=== PATIENT | female | born 1940 | race Caucasian/White ===

== ENCOUNTER 2016-10-22 15:06 | Outpatient (CLI) | payer OTHER ==
[2015-12-12 17:04] VITALS: BP 124/68
== END 2016-10-22 15:07 ==
LOC: POD 15:06
PROVIDERS: ATTEND Podiatrist
DX: M20.12 Hallux valgus (acquired), left foot (principal)
CPT/HCPCS: G0463

== ENCOUNTER 2016-11-28 23:21 | Emergency (ER) | payer OTHER ==
--- NOTE | 2016-11-29 00:31 | Diagnostic Imaging Report ---
ILEANA ZHU [facility] [address] [facility] [address] [place], [place]. [address] Report Submission Date: Nov 29, 2016 12:29:28 AM CDT Patient Study Name: JOSE ROGERS Date: Nov 29, 2016 12:03:34 AM CDT Modality Type: CT\SR Gender: F Description: CT BRAIN W/O CONTRAST : 44 Institution: [facility] Physician: ILEANA ZHU Head CT without contrast Clinical history: The patient tripped and fell with injury to the right side of the head and face. Right periorbital bruising. Technique: CT examination of the brain is performed in contiguous axial slices without the use of contrast. Sagittal and coronal reconstructions are performed by the technologist. Findings: The fourth ventricle lies in a normal midline position. The ventricles and sulci are prominent secondary to atrophy. Chronic ischemic changes are present in the periventricular regions. There is an old infarct on the right along the external capsule. There is no hypodense or hyperdense mass or intracranial hemorrhage. The visualized paranasal sinuses and the mastoid air cells are clear. Right periorbital soft tissue swelling is demonstrated. Impression: 1. Atrophy and chronic small vessel ischemic changes. 2. 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 3. Right periorbital soft tissue swelling. Electronically signed on Nov 29, 2016 12:29:28 AM CDT by: Marco MOORE
--- NOTE | 2016-11-29 00:34 | Diagnostic Imaging Report ---
ILEANA ZHU [facility] [address] [facility] [address] [place], [place]. [address] Report Submission Date: Nov 29, 2016 12:33:27 AM CDT Patient Study Name: JOSE ROGERS Date: Nov 29, 2016 12:06:24 AM CDT Modality Type: CT\SR Gender: F Description: CT MAXILLOFACIAL W/O D : 42 Institution: [facility] Physician: ILEANA ZHU CT of the facial bones Clinical history: Tripped and fell with injury to the right side of the face. Right periorbital bruising. Technique: CT of the facial bones is performed in contiguous axial slices with sagittal and coronal reconstructions. Findings: The zygomatic arches and nasal bones are intact as is the anterior maxillary spine. Bony margins of the orbits are intact. The extraocular muscles and optic nerves are symmetric. The orbital fat is preserved. There is right periorbital soft tissue swelling. Mild nasal septal deviation to the left is seen. The nasal airway passages are patent. The mandibular condyle is normally seated in the temporal fossa bilaterally. The patient is edentulous. Impression: 1. Right periorbital soft tissue swelling. 2. No fracture. 3. Mild nasal septal deviation. Electronically signed on Nov 29, 2016 12:33:27 AM CDT by: Marco MOORE
--- NOTE | 2016-11-29 00:38 | Diagnostic Imaging Report ---
ILEANA ZHU [facility] [address] [facility] [address] [place], [place]. [address] Report Submission Date: Nov 29, 2016 12:36:49 AM CDT Patient Study Name: JOSE ROGERS Date: Nov 29, 2016 12:09:58 AM CDT Modality Type: CT\SR Gender: F Description: CT C-SPINE W/O CONTRAS : 42 Institution: [facility] Physician: ILEANA ZHU CT of the cervical spine Clinical history: The patient tripped and fell with injury to the right side of the head and face. Neck pain. Technique: CT of the cervical spine is performed in contiguous axial slices with sagittal and coronal reconstructions. Findings: The alignment of the vertebrae is anatomic. Disc spaces are narrowed at C3-4, C4-5 and C5-6 with small osteophytes consistent with degenerative disc disease. There are degenerative facet changes throughout the cervical vertebrae. The C1-2 articulation is normal and the base of the odontoid is intact. There is no evident fracture. Posterior osteophyte slightly narrows the neural foramen on the right at C3-4 and C4-5 with narrowing of both neural foramina at C5-6. Impression: 1. Spondylosis. 2. No fracture. 3. Right lobe of the thyroid is markedly enlarged and inhomogeneous likely related to a goiter. Electronically signed on Nov 29, 2016 12:36:49 AM CDT by: Marco MOORE
--- NOTE | 2016-11-29 00:48 | Diagnostic Imaging Report ---
ILEANA ZHU [facility] [address] [facility] [address] [address] Report Submission Date: Nov 29, 2016 12:43:27 AM CDT Patient Study Name: JOSE ROGERS Date: Nov 29, 2016 12:12:30 AM CDT Modality Type: CR Gender: F Description: UPPER EXTREMITY : 44 Institution: [facility] Physician: ILEANA ZHU Left wrist- three views Clinical history: Fall with injury. Pain and swelling. Findings: Examination of the left wrist in palmar, lateral and oblique views demonstrates degenerative changes with narrowing of the radiocarpal and lateral intercarpal joints. There is an old ununited fracture of the ulnar styloid. There is no evidence of acute fracture or dislocation. Soft tissue swelling overlies the dorsum of the wrist. Impression: 1. Degenerative changes and soft tissue swelling. 2. No acute fracture. Electronically signed on Nov 29, 2016 12:43:27 AM CDT by: Marco MOORE
[2016-11-29] MEDS ORDERED: IBUPROFEN 400 MG TABLET PO ONE (00:51)
[2016-11-29] MEDS: IBUPROFEN 400 MG TABLET PO ONE (00:52)
[2016-11-29 01:08] VITALS: BP 116/82
--- NOTE | 2016-11-29 06:18 | ED Physician Documentation ---
Fall - HISTORIAN Historian: patient - HPI Stated Complaint: Fall Chief Complaint: Fall Additional Information: fell forward onto concrete 1500 yesterday, no loc Onset: yesterday Where: home Context: lost balance r: moderate Associated Symptoms:: no loss of consciousness Location of Pain/Injury: head, upper extremity (left wrist) Injury to Right Extremity: none Injury to Left Extremity: none Further Comments: no - ROS CONST: no problems NEURO: denies: dizziness MS/SKIN/LYMPH: denies: weakness EYES/ENT: denies: none CVS/RESP: denies: none GI/: denies: problems urinating, nausea, vomiting - PAST HX Past History: none Immunizations: referred to PCP Allergies/Adverse Reactions: Allergies Allergy/AdvReac Type Severity Reaction Status Date / Time Penicillins Allergy Severe Hives Verified 11/28/16 23:36 codeine [Codeine] Allergy Intermediate Hives Verified 11/28/16 23:36 sulfamethoxazole Allergy Intermediate Hives Verified 11/28/16 23:36 [From Bactrim] trimethoprim [From Bactrim] Allergy Intermediate Hives Verified 11/28/16 23:36 Home Medications: Ambulatory Orders Medication Instructions Recorded Ascorbic Acid [Vitamin C] 500 mg PO DAILY 11/28/16 Aspirin [Carissa] 81 mg PO DAILY 11/28/16 Biotin [Karel Biotin] 10,000 mcg PO DAILY 11/28/16 Cyanocobalamin (Vitamin B-12) 500 mcg SL DAILY 11/28/16 [Vitamin B-12] Multivitamin [Daily Multiple 1 each PO DAILY 11/28/16 Vitamin] Vitamin E 400 unit PO DAILY 11/28/16 - SOCIAL HX Smoking History: non-smoker Alcohol Use: none - FAMILY HX Family History: none - VITAL SIGNS Vital Signs: Vital Signs Temp Pulse Resp BP Pulse Ox 99.0 F 68 16 116/82 95 11/28/16 23:24 11/29/16 01:05 11/29/16 01:05 11/29/16 01:05 11/29/16 01:05 - REVIEWED ASSESSMENTS Nursing Assessment Reviewed: Yes Vitals Reviewed: Yes Progress - Results/Orders Results/Orders: ct head, c-spine and face ordered, x-ray left wrist ordered - Progress Progress: pt. given 800 mg motrin p.o. and left wrist chavo wrapped Critical Care Note - Critical Care Note Total Time (mins): 0 ED Results Lab/Radiology - Lab Results Lab Results: none ordered - Radiology Radiology Impressions: x-ray left wrist, ct head, ct c-spine and ct facial bones all neg - Orders Orders: ED Orders Category Date Time Status Chavo Wrap Affected Extremity 1T Care 11/29/16 00:51 Active Ice Pack [Provide cold compresses] PRN Care 11/28/16 23:[address] BRAIN W/O CONTRAST Stat Exams 11/28/[address] C-SPINE W/O CONTRAST Stat Exams 11/28/[address] MAXILLOFACIAL W/O DYE Routine Exams 11/28/16 Completed WRIST 3 VIEWS OR MORE [RAD] Stat Exams 11/28/16 Completed Ibuprofen [Advil] Med 11/29/16 00:51 Discontinued 800 mg PO .STK-MED ONE Ibuprofen [Advil] Med 11/29/16 00:51 Discontinued 800 mg PO NOW ONE Fall Physical Exam - Physical Exam General Appearance: alert, mild distress Head: trauma (bruise right eye). No: raccoon eyes, Deleon's sign Neck: non-tender, painless ROM Eye: GRAEME, EOMI, other (periorbital bruise right eye) ENT: nml external inspection, no dental injury, no oral injury, airway nml Resp/CVS: chest non-tender, no ecchymosis, breath sounds nml, no resp. distress , heart sounds nml Abdomen: soft, no organomegaly, normal bowel sounds, no abdominal bruit, no distension, non-tender Neuro: oriented x3, CN's nml as tested, sensation nml, motor nml, mood/affect nml, reflexes nml, other (decreased grasp left hand) Skin: color nml, other (bruise right periorbital area) Back: normal inspection, no CVA tenderness, no vertebral tenderness Extremities: other (left wrist tender, edematous dorsum) Joint: joints nml, nml ROM - [place] Coma Score Eyes Open: Spontaneous Speech: Oriented Motor: Obeys Commands (15) Discharge Clincal Impression: Left wrist sprain Qualifiers: Encounter type: initial encounter Qualified Code(s): S63.502A - Unspecified sprain of left wrist, initial encounter Facial contusion Qualifiers: Encounter type: initial encounter Qualified Code(s): S00.83XA - Contusion of other part of head, initial encounter Referrals: Charlene Solitario MD [Primary Care Provider] - 2 Days Home Medications: Ambulatory Orders Ascorbic Acid [Vitamin C] 500 mg PO DAILY 11/28/16 Aspirin [Carissa] 81 mg PO DAILY 11/28/16 Biotin [Karel Biotin] 10,000 mcg PO DAILY 11/28/16 Cyanocobalamin (Vitamin B-12) [Vitamin B-12] 500 mcg SL DAILY 11/28/16 Multivitamin [Daily Multiple Vitamin] 1 each PO DAILY 11/28/16 Vitamin E 400 unit PO DAILY 11/28/16 Comments: discharged with recommendation for otc motrin 800 mg p.o. tid, ice, chavo, elevate wrist and ice face Condition: Stable Disposition: 01 HOME, SELF-CARE Decision to Admit: NO Decision Time: 01:00
== END 2016-11-29 01:01 | disposition home or self-care (01) ==
LOC: ED 23:21
DX: S63.502A Unspecified sprain of left wrist, initial encounter (principal); S00.83XA Contusion of other part of head, initial encounter; X58.XXXA Exposure to other specified factors, initial encounter; Y93.9 Activity, unspecified; Y99.9 Unspecified external cause status
CPT/HCPCS: 70450; 70486; 72125; 73110; 99283

== ENCOUNTER 2017-01-15 14:31 | Outpatient (CLI) | payer OTHER ==
[2017-01-15 15:27] LABS: eGFR (African) > 60; eGFR (Non-African) > 60
== END 2017-01-15 14:32 ==
LOC: RT 14:31
PROVIDERS: ATTEND Family Medicine
DX: R53.1 Weakness (principal); E78.2 Mixed hyperlipidemia; R53.83 Other fatigue
CPT/HCPCS: 36415; 80053; 80061; 84443

== ENCOUNTER 2017-03-06 09:46 | Outpatient (CLI) | payer OTHER ==
[2017-03-07 08:51] LABS: ADENOVIRUS F 40/41 Not Detected (Not Detected); ASTROVIRUS Not Detected (Not Detected); C. DIFFICILE (TOXIN A/B) Not Detected (Not Detected); CRYPTOSPORIDIUM Not Detected (Not Detected); CYCLOSPORA CAYETANENSIS Not Detected (Not Detected); ENTAMOEBA HISTOLYTICA Not Detected (Not Detected); GIARDIA LAMBLIA Not Detected (Not Detected); ROTAVIRUS A Not Detected (Not Detected); SAPOVIRUS Not Detected (Not Detected); VIBRIO CHOLERAE Not Detected (Not Detected)
== END 2017-03-06 09:47 ==
LOC: LAB 09:46
PROVIDERS: ATTEND Family Medicine
DX: R19.7 Diarrhea, unspecified (principal)
CPT/HCPCS: 82270; 87507

== ENCOUNTER 2017-03-10 20:30 | Emergency (ER) | payer OTHER ==
[2017-03-10] MEDS ORDERED: DIPH,PERTUSS(ACELL),TET VAC/PF 0.5 ML DISP.SYRIN IM ONE (20:59)
[2017-03-10] MEDS ORDERED: traMADol HCL 50 MG TABLET PO ONE (20:59)
--- NOTE | 2017-03-10 21:04 | ED Physician Documentation ---
Fall - HISTORIAN Historian: patient, child - HPI Stated Complaint: Fall, pain to Lt Shoulder/Lac to Lt [place] Chief Complaint: Fall Additional Information: TRIPPED FELL W/ PAIN LT SHOULDER AND LAC LT GNOSTICIST JUST LATERAL TO LT EYE Onset: just prior to arrival Where: other (c-r grocery store slipped on soapy wet floor) Context: slipped, lost balance r: moderate Associated Symptoms:: no loss of consciousness Location of Pain/Injury: face, L shoulder Injury to Left Extremity: shoulder Further Comments: yes (no loc) - ROS CONST: no problems NEURO: denies: dizziness, anxiety MS/SKIN/LYMPH: denies: weakness, numbness, neck pain, back pain EYES/ENT: denies: problems with vision CVS/RESP: denies: chest pain, shortness of breath GI/: denies: nausea, vomiting - PAST HX Past History: other (djd colitis) Immunizations: denies: UTD Allergies/Adverse Reactions: Allergies Allergy/AdvReac Type Severity Reaction Status Date / Time Penicillins Allergy Severe Hives Verified 03/10/17 20:51 codeine [Codeine] Allergy Intermediate Hives Verified 03/10/17 20:51 sulfamethoxazole Allergy Intermediate Hives Verified 03/10/17 20:51 [From Bactrim] trimethoprim [From Bactrim] Allergy Intermediate Hives Verified 03/10/17 20:51 morphine Allergy Verified 03/10/17 20:51 Home Medications: Ambulatory Orders Medication Instructions Recorded Ascorbic Acid [Vitamin C] 500 mg PO DAILY 11/28/16 Aspirin [Carissa] 81 mg PO DAILY 11/28/16 Biotin [Karel Biotin] 10,000 mcg PO DAILY 11/28/16 Cyanocobalamin (Vitamin B-12) 500 mcg SL DAILY 11/28/16 [Vitamin B-12] Multivitamin [Daily Multiple 1 each PO DAILY 11/28/16 Vitamin] Vitamin E 400 unit PO DAILY 11/28/16 - SOCIAL HX Smoking History: non-smoker Alcohol Use: none Drug Use: none - FAMILY HX Family History: no significant history - VITAL SIGNS Vital Signs: Vital Signs Temp Pulse Resp BP Pulse Ox 97.5 F L 72 18 151/78 94 03/10/17 20:34 03/10/17 20:34 03/10/17 20:34 03/10/17 20:34 03/10/17 20:34 - REVIEWED ASSESSMENTS Nursing Assessment Reviewed: Yes Vitals Reviewed: Yes Procedures Wound Location: face Wound's Depth, Shape: superficial, irregular Wound Explored: no foreign body removed Betadine Prep?: Yes Wound Repaired With: Dermabond ED Results Lab/Radiology - Orders Orders: ED Orders Category Date Time Status LEFT CLAVICLE [CLAVICLE COMPLETE] [RAD] Stat Exams 03/10/17 Ordered SHOULDER 2 VIEWS OR MORE [RAD] Stat Exams 03/10/17 Ordered Diph,Pertuss(Acell),Tet Vac/Pf [Adacel] Med 03/10/17 20:59 Once 0.5 ml IM .ONCE ONE traMADol HCL [Ultram] Med 03/10/17 20:59 Once 50 mg PO NOW ONE Fall Physical Exam - Physical Exam General Appearance: mild distress Head: non-tender, no swelling, no obvious injury Neck: non-tender Eye: GRAEME, EOMI Resp/CVS: chest non-tender, breath sounds nml, heart sounds nml. No: rib tenderness, decreased breath sounds, wheezes, rales, rhonchi Abdomen: soft, non-tender Neuro: oriented x3, sensation nml, motor nml, mood/affect nml Skin: color nml, no rash. No: cyanosis, diaphoresis, pallor, ecchymosis Extremities: other (lt shouldera and clavicle) - [place] Coma Score Eyes Open: Spontaneous Speech: Oriented Motor: Obeys Commands Discharge Clincal Impression: fracture distal clavicle, laceeration lat lt eye-face Referrals: Charlene Solitario MD [Primary Care Provider] - 2 Days Comments: home shoulder immobilizer cont tramadol as needed for pain f-u xray in 2 weeks Condition: Good Disposition: 01 HOME, SELF-CARE Decision to Admit: NO Decision Time: 21:45
[2017-03-10 22:15] VITALS: BP 148/72
--- NOTE | 2017-03-11 05:33 | Diagnostic Imaging Report ---
ANDIE FAJARDO [facility] [address] [facility] [address] Report Submission Date: Mar 10, 2017 9:29:43 PM CDT Patient Study Name: JOSE ROGERS Date: Mar 10, 2017 9:18:49 PM CDT Modality Type: CR Gender: F Description: SHOULDER : 44 Institution: [facility] Physician: ANDIE FAJARDO Left shoulder, 3 views. History: Fall with pain. Findings: This fracture the distal 3rd of the clavicle without significant displacement. The acromioclavicular joint is normal. The proximal humerus is intact with the humeral head well seen within the glenoid fossa. There is no soft tissue swelling. Impression: 1. Fracture distal 3rd of the clavicle with out significant displacement. Electronically signed on Mar 10, 2017 9:29:43 PM CDT by: Brad MOORE
--- NOTE | 2017-03-11 05:33 | Diagnostic Imaging Report ---
ANDIE FAJARDO [facility] [address] [facility].[address] [address] Report Submission Date: Mar 10, 2017 9:30:21 PM CDT Patient Study Name: JOSE ROGERS Date: Mar 10, 2017 9:17:32 PM CDT Modality Type: CR Gender: F Description: SHOULDER : 42 Institution: [facility] Physician: ANDIE FAJARDO Left clavicle, 2 views. History: Pain. Fall Findings: This fracture the distal 3rd of the clavicle without significant displacement. The acromioclavicular joint is normal. The proximal humerus is intact with the humeral head well seen within the glenoid fossa. Impression: 1. Fracture the distal 3rd of the clavicle without significant displacement . Electronically signed on Mar 10, 2017 9:30:21 PM CDT by: Brad MOORE
== END 2017-03-10 22:05 | disposition home or self-care (01) ==
LOC: ED 20:30
DX: S42.032A Displaced fracture of lateral end of left clavicle, initial encounter for closed fracture (principal); S01.119A Laceration without foreign body of unspecified eyelid and periocular area, initial encounter; W19.XXXA Unspecified fall, initial encounter; Y93.9 Activity, unspecified; Y99.9 Unspecified external cause status
CPT/HCPCS: 12001; 73000; 73030; 90471; 90715; 99283; 99284